=== PATIENT | male | born 1950 | race Caucasian/White ===

== ENCOUNTER 2019-07-28 05:47 | Day surgery (SDC) | payer MEDICARE, OTHER ==
[2019-07-25 15:43] VITALS: BMI 35.2
[2019-07-28] MEDS ORDERED: Fentanyl 100 MCG/2 ML VIAL ONE (06:15)
[2019-07-28 06:37] LABS: #Basophils 0.1 thou/uL (0.0-0.2); #Eosinphils 0.2 thou/uL (0.0-0.7); #Lymphocytes 2.6 thou/uL (1.20-3.40); #Neutrophils 3.8 thou/uL (1.40-6.50); %Eosinophils 2.9 % (0.0-10.0); %Lymphocytes 34.5 % (21.0-51.0); %Monocytes 12.4 % (0.0-10.0); %Neutrophils 49.3 % (42.0-75.0); Mean Corpuscular HGB CONC 34.1 g/dL (32.0-36.0); Mean Corpuscular Volume 93.7 fL (78.0-98.0); Mean Platelet Volume 5.9 fL (7.4-10.4); Platelet Count 267 thou/uL (130-400); RBC Distribution Width 11.2 % (11.5-14.5); White Blood Cell (WBC) Count 7.6 thou/uL (4.8-10.8)
[2019-07-28 06:52] LABS: Anion Gap 12 mmol/L (10-20); BUN (Urea Nitrogen) 11 mg/dL (8.4-25.7); Calc. Creatinine Clearance 129 mL/min (70-130); Calcium 9.5 mg/dL (7.8-10.44); Carbon Dioxide 28 mmol/L (23-31); Chloride 104 mmol/L (98-107); Estimated GFR-MDRD 85; Glucose 131 mg/dL (80-115); Potassium 4.3 mmol/L (3.5-5.1); Sodium 140 mmol/L (136-145)
[2019-07-28] MEDS ORDERED: Albuterol Sulfate HFA (OR ONLY) ONE (07:36)
[2019-07-28] MEDS ORDERED: Milk Of Magnesia 30 ML UDCUP PO PRN (08:56)
[2019-07-28] MEDS ORDERED: tiZANidine HCl 4 MG TAB PO PRN (08:56)
[2019-07-28] MEDS ORDERED: diphenhydrAMINE 25 MG CAP PO PRN (08:56)
[2019-07-28] MEDS ORDERED: HYDROcodone/Acetaminophen 10/325 mg Tablet PO PRN (08:56)
[2019-07-28] MEDS ORDERED: Promethazine HCl 12.5 MG SUPP PR PRN (08:56)
[2019-07-28] MEDS ORDERED: Morphine 2 MG/ML SYRINGE SLOW IVP PRN (08:56)
[2019-07-28] MEDS ORDERED: diphenhydrAMINE 50 MG/ML VIAL IVP PRN (08:56)
[2019-07-28] MEDS ORDERED: traMADol HCl 50 MG TAB PO PRN ×2 (08:56)
[2019-07-28] MEDS ORDERED: Promethazine HCl 25 MG/ML VIAL IM PRN (08:56)
[2019-07-28] MEDS ORDERED: Mag-Al 1200 mg/1200 mg/30 ML UDCUP PO PRN (08:56)
[2019-07-28] MEDS ORDERED: Promethazine 25 MG TAB PO PRN (08:56)
[2019-07-28] MEDS ORDERED: Morphine 4 MG/ML VIAL SLOW IVP PRN (08:56)
[2019-07-28] MEDS ORDERED: Ondansetron PF 4 MG/2 ML Vial IVP PRN (08:58)
[2019-07-28] MEDS ORDERED: Tamsulosin HCl 0.4 MG CAP ONE (09:05)
[2019-07-28] MEDS ORDERED: Glycopyrrolate 0.2 MG/ML 5 ML SYRINGE ONE (09:59)
[2019-07-28] MEDS ORDERED: Lidocaine 1% PF 5 ML VIAL ONE (09:59)
[2019-07-28] MEDS ORDERED: Rocuronium Bromide 10 MG/ML (10ML VIAL) ONE (09:59)
[2019-07-28] MEDS ORDERED: Ketorolac Tromethamine 30 MG/ML VIAL ONE (09:59)
[2019-07-28] MEDS ORDERED: Dexamethasone 20 MG/5 ML VIAL ONE (09:59)
[2019-07-28] MEDS ORDERED: PROPOFOL 200 MG/20 ML VIAL ONE (09:59)
[2019-07-28] MEDS ORDERED: EPHEDRINE 25 MG/5 ML SYRINGE ONE (09:59)
[2019-07-28] MEDS ORDERED: Ondansetron PF 4 MG/2 ML Vial ONE (09:59)
[2019-07-28] MEDS: Sodium Chloride 0.9% 1,000 ML IV SCH (11:24)
--- NOTE | 2019-07-28 14:28 | OP ---
DATE OF PROCEDURE: 07/28/2019 EDUCATIONAL TECHNICIAN: Michelle Dyer PA-C PROCEDURES PERFORMED: Anterior cervical diskectomy, C5-C6 and C6-C7; interbody arthrodesis; intervertebral biomechanical device; local morselized autograft; demineralized bone matrix; anterior titanium instrumentation, C5-C6 and C6-C7. DESCRIPTION OF PROCEDURE: The patient was brought to the operating room and intubated. He was positioned supine with head in modest extension on a gel-filled donut. An incision was made in the right precervical area, and dissecting medial to the sternocleidomastoid muscle, identified the anterior cervical spinal, and the level was confirmed by x-ray. We debrided the anterior osteophytes, placed distraction across the disk spaces, and completely decompressed the intervertebral disks. Bony endplates were then decorticated for the purpose of arthrodesis, and appropriate-sized intervertebral biomechanical PEEK device was brought into the field, filled with demineralized bone matrix and local morselized autograft, and tapped in place securely at C5-C6 and C6-C7. Next, an anterior plate was brought into the field and secured to C5, C6, and C7 using two 14-mm screws at each level. The wound was extensively irrigated. MAC hemostasis was secured. The wound was closed in anatomic layers over drain. Job ID: [id number]
[2019-07-28] MEDS: CEFAZOLIN 2 GM in Premix Bag 1 BAG IVPB SCH ×2 (15:22→22:48)
--- NOTE | 2019-07-28 16:27 | EKG ---
Test Reason : PREOP Blood Pressure : / mmHG Vent. Rate : 067 BPM Atrial Rate : 067 BPM P-R Int : 178 ms QRS Dur : 098 ms QT Int : 406 ms P-R-T Axes : 018 -48 -08 degrees QTc Int : 429 ms Normal sinus rhythm Left anterior fascicular block Abnormal ECG No previous ECGs available Confirmed by DR. Lance PRADO ([id number]) on 07/28/2019 4:27:09 PM Referred By: FLETCHER Confirmed By:DR. Lance PRADO
[2019-07-28] MEDS: HYDROcodone/Acetaminophen 10/325 mg Tablet PO PRN ×2 (18:26→22:57)
[2019-07-29] MEDS: Sodium Chloride 0.9% 1,000 ML IV SCH (01:30)
[2019-07-29] MEDS ORDERED: Tamsulosin HCl 0.4 MG CAP PO SCH (06:00)
[2019-07-29] MEDS: HYDROcodone/Acetaminophen 10/325 mg Tablet PO PRN (06:13)
[2019-07-29 07:45] VITALS: BP 117/66; TEMP 98.7
--- NOTE | 2019-07-30 01:58 | DIS ---
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 He underwent C5-C7 ACDF on 07/28/2019. Following the surgery, he was transitioned to the floor, where his pain has been well-controlled with p.o. medications, he is tolerating a regular diet, and he is voiding appropriately. He had minimal output from his DENIA overnight. He is up ambulating back and forth in his room without any difficulty. He feels that he is ready to go home. I have discussed home care precautions. We will provide him scripts for [place] and Zanaflex. He has also been provided with discharge instructions. I have discussed home care and followup. Job ID: [id number]
== END 2019-07-29 09:28 | disposition home or self-care (01) ==
LOC: SDC 05:47 → 3SE 08:57 → SDC 07-29 09:28
PROVIDERS: ATTEND Neurological Surgery
PROC: 0RG20A0 Fusion of 2 or more Cervical Vertebral Joints with Interbody Fusion Device, Anterior Approach, Anterior Column, Open Approach (ICD-10-PCS; principal; 2019-07-28)
PROC: 0RT30ZZ Resection of Cervical Vertebral Disc, Open Approach (ICD-10-PCS; 2019-07-28)
DX: M47.22 Other spondylosis with radiculopathy, cervical region (principal); M50.122 Cervical disc disorder at C5-C6 level with radiculopathy; I11.0 Hypertensive heart disease with heart failure; I50.9 Heart failure, unspecified; E78.5 Hyperlipidemia, unspecified; I25.2 Old myocardial infarction; E66.9 Obesity, unspecified; Z68.35 Body mass index [BMI] 35.0-35.9, adult; Z79.82 Long term (current) use of aspirin; Z79.899 Other long term (current) drug therapy
CPT/HCPCS: 36415; 76000; 80048; 85025; 93005; 93010; C1713; C1776; J0690; J1100; J1885; J2001; J2405; J2704; J3010; J3490